=== PATIENT | male | born 1940 | race Caucasian/White ===

== ENCOUNTER 2018-02-14 20:42 | Inpatient (IN) | payer MEDICARE, OTHER ==
[2018-02-14 21:31] LABS: ADD MAN DIFF? NO
[2018-02-14 21:36] LABS: ABNORMAL IP MESSAGE 1; BASOPHIL # 0.1 10^3/ul (0.0-0.1); BASOPHILS % 0.3 % (0.0-2.0); EOSINOPHILS # 0.8 10^3/ul (0.0-0.5); EOSINOPHILS % 3.2 % (0.0-7.0); HEMATOCRIT 36.9 % (42.0-52.0); HEMOGLOBIN 12.1 g/dl (14.0-18.0); LYMPHOCYTES # 1.1 10^3/ul (0.8-2.9); LYMPHOCYTES % 4.5 % (15.0-51.0); MEAN CORPUSCULAR HEMOGLOBIN 29.9 pg (29.0-33.0); MEAN CORPUSCULAR HGB CONC 32.8 g/dl (32.0-37.0); MEAN CORPUSCULAR VOLUME 91.1 fl (82.0-101.0); MEAN PLATELET VOLUME 9.5 fl (7.4-10.4); MONOCYTE # 1.4 10^3/ul (0.3-0.9); MONOCYTES % 5.8 % (0.0-11.0); NEUTROPHIL # 20.8 10^3/ul (1.6-7.5); NEUTROPHILS % 85.1 % (39.0-77.0); PLATELET COUNT 483 10^3/UL (140-415); POSITIVE DIFF @See below; RED BLOOD COUNT 4.05 10^6/ul (4.70-6.10); RED CELL DISTRIBUTION WIDTH 15.5 % (11.5-14.5)
[2018-02-14 21:36] LABS: WHITE BLOOD COUNT 24.4 10^3/ul (4.8-10.8)
[2018-02-14] MEDS: SODIUM CHLORIDE 0.9% 1L BAG IV* (21:42)
[2018-02-14 22:05] LABS: ALANINE AMINOTRANSFERASE 134 IU/L (13-69); ALKALINE PHOSPHATASE 218 IU/L (42-121); ANION GAP 17 (8-16); ASPARTATE AMINO TRANSFERASE 86 IU/L (15-46); BILIRUBIN,INDIRECT 0.2 mg/dl (0-1.1); BILIRUBIN,TOTAL 0.2 mg/dl (0.2-1.3); BLOOD UREA NITROGEN 62 mg/dl (7-20); CALCIUM 10.3 mg/dl (8.4-10.2); CARBON DIOXIDE 25 mmol/L (21-31); CHLORIDE 111 mmol/L (97-110); CREATININE 1.79 mg/dl (0.61-1.24); GLUCOSE 99 mg/dl (70-220); LIPASE 83 U/L (23-300); SODIUM 148 mmol/L (135-144)
[2018-02-14 22:06] LABS: LACTIC ACID 1.9 mmol/L (0.5-2.0)
[2018-02-14 22:06] LABS: ALBUMIN 3.4 g/dl (3.3-4.9); ALBUMIN/GLOBULIN RATIO 0.85; TOTAL PROTEIN 7.4 g/dl (6.1-8.1)
[2018-02-14 22:17] LABS: TROPONIN-I 0.037 ng/ml (0.00-0.12)
[2018-02-14 22:21] LABS: INR 1.11; PROTIME 14.5 Sec (11.9-14.9); PT RATIO 1.1
[2018-02-14 22:22] LABS: PARTIAL THROMBOPLASTIN TIME 41.7 Sec (25.0-35.0)
[2018-02-14] MEDS: CEFEPIME 1GM/50 ML (PMX) 50 ML IVPB (23:41)
[2018-02-15] MEDS: VANCOMYCIN 1 GM (PMX) 250 ML IVPB (00:08)
[2018-02-15 00:10] LABS: LACTIC ACID 1.5 mmol/L (0.5-2.0)
[2018-02-15 03:15] LABS: LACTIC ACID 1.3 mmol/L (0.5-2.0)
[2018-02-15] MEDS ORDERED: VANCOMYCIN IV PER PHARMACY XX (11:30)
[2018-02-15] MEDS ORDERED: NACL 0.9% 3 ML SYG IV (12:00)
[2018-02-15] MEDS ORDERED: ONDANSETRON 4 MG INJ IV (12:00)
[2018-02-15] MEDS ORDERED: BISACODYL 10 MG SUPP PR (12:00)
[2018-02-15] MEDS ORDERED: hydrALAzine 20 MG INJ IV (13:00)
[2018-02-15] MEDS: DEXTROSE 5%-0.45% NACL 1,000 ML IV (13:33)
[2018-02-15] MEDS: PIPER-TAZO 2.25 GM (PMX) 50 ML IVPB ×2 (15:50→22:01)
[2018-02-15] MEDS: VANCOMYCIN 750 MG in DEXTROSE 5% 150 ML IVPB (17:56)
[2018-02-15] MEDS ORDERED: PIPER-TAZO 2.25 GM (PMX) 50 ML IVPB (19:00)
[2018-02-15] MEDS: HEPARIN 5,000 UNIT/0.5 ML VIAL SC (22:03)
[2018-02-15] MEDS: METOPROLOL 25 MG TAB PO (22:05)
[2018-02-15] MEDS: FAMOTIDINE 20 MG TAB PO (22:06)
[2018-02-15] MEDS: VALPROIC ACID 250 MG CAP PO (22:06)
[2018-02-15] MEDS: ATORVASTATIN 80 MG TAB PO (22:06)
[2018-02-16] MEDS: PIPER-TAZO 2.25 GM (PMX) 50 ML IVPB ×5 (02:27→23:07)
[2018-02-16] MEDS: HYDROCODONE/APAP (5/325) TAB PO ×2 (05:44→17:39)
[2018-02-16] MEDS: DEXTROSE 5%-0.45% NACL 1,000 ML IV ×2 (05:45→22:49)
[2018-02-16] MEDS: PANTOPRAZOLE (EC) 40 MG TAB PO (05:54)
[2018-02-16 06:33] LABS: ADD MAN DIFF? NO
[2018-02-16 06:41] LABS: WHITE BLOOD COUNT 14.9 10^3/ul (4.8-10.8)
[2018-02-16 06:41] LABS: BASOPHIL # 0.1 10^3/ul (0.0-0.1); BASOPHILS % 0.3 % (0.0-2.0); EOSINOPHILS # 0.5 10^3/ul (0.0-0.5); EOSINOPHILS % 3.4 % (0.0-7.0); HEMATOCRIT 34.6 % (42.0-52.0); HEMOGLOBIN 11.1 g/dl (14.0-18.0); LYMPHOCYTES # 1.1 10^3/ul (0.8-2.9); LYMPHOCYTES % 7.4 % (15.0-51.0); MEAN CORPUSCULAR HEMOGLOBIN 29.4 pg (29.0-33.0); MEAN CORPUSCULAR HGB CONC 32.1 g/dl (32.0-37.0); MEAN CORPUSCULAR VOLUME 91.8 fl (82.0-101.0); MEAN PLATELET VOLUME 9.1 fl (7.4-10.4); MONOCYTE # 0.8 10^3/ul (0.3-0.9); MONOCYTES % 5.1 % (0.0-11.0); NEUTROPHIL # 12.2 10^3/ul (1.6-7.5); NEUTROPHILS % 82.1 % (39.0-77.0); PLATELET COUNT 475 10^3/UL (140-415); RED BLOOD COUNT 3.77 10^6/ul (4.70-6.10); RED CELL DISTRIBUTION WIDTH 15.6 % (11.5-14.5)
[2018-02-16 06:58] LABS: CREATINE KINASE 29 IU/L (23-200)
[2018-02-16 06:58] LABS: URIC ACID 5.2 mg/dl (3.1-7.9)
[2018-02-16 07:03] LABS: ALANINE AMINOTRANSFERASE 89 IU/L (13-69); ALBUMIN 3.2 g/dl (3.3-4.9); ALBUMIN/GLOBULIN RATIO 0.94; ALKALINE PHOSPHATASE 167 IU/L (42-121); ANION GAP 14 (8-16); ASPARTATE AMINO TRANSFERASE 53 IU/L (15-46); BILIRUBIN,INDIRECT 0.4 mg/dl (0-1.1); BILIRUBIN,TOTAL 0.4 mg/dl (0.2-1.3); BLOOD UREA NITROGEN 38 mg/dl (7-20); CALCIUM 9.7 mg/dl (8.4-10.2); CARBON DIOXIDE 24 mmol/L (21-31); CHLORIDE 114 mmol/L (97-110); CREATININE 1.44 mg/dl (0.61-1.24); GLUCOSE 148 mg/dl (70-220); MAGNESIUM 1.8 mg/dl (1.7-2.5); POTASSIUM 4.2 mmol/L (3.5-5.1); SODIUM 148 mmol/L (135-144); TOTAL PROTEIN 6.6 g/dl (6.1-8.1)
[2018-02-16] MEDS ORDERED: INFLUENZA VIRUS VACCINE 0.5 ML (DISPENSING) IM* (09:00)
[2018-02-16] MEDS: CHOLECALCIFEROL 1,000 UNIT TAB PO (09:03)
[2018-02-16] MEDS: FERROUS SULFATE (EC) 325 MG TAB PO (09:03)
[2018-02-16] MEDS: AMLODIPINE 10 MG TAB PO (09:03)
[2018-02-16] MEDS: ASCORBIC ACID 500 MG TAB PO (09:03)
[2018-02-16] MEDS: METOPROLOL 25 MG TAB PO ×2 (09:03→22:45)
[2018-02-16] MEDS: MULTIVITAMINS THERAPEUTIC TAB PO (09:03)
[2018-02-16] MEDS: CLOPIDOGREL 75 MG TAB PO (09:04)
[2018-02-16] MEDS: COLCHICINE 0.6 MG TAB PO (09:04)
[2018-02-16] MEDS: HEPARIN 5,000 UNIT/0.5 ML VIAL SC ×2 (09:04→22:48)
[2018-02-16] MEDS: ACETAMINOPHEN 325 MG TAB PO (12:21)
[2018-02-16 15:29] LABS: ADD UMIC YES; UR ASCORBIC ACID NEGATIVE (NEGATIVE); UR BILIRUBIN (Dip) NEGATIVE (NEGATIVE); UR BLOOD (Dip) NEGATIVE (NEGATIVE); UR CLARITY SLIGHTLY CLOUDY (CLEAR); UR COLOR YELLOW (YELLOW); UR GLUCOSE (Dip) NEGATIVE (NEGATIVE); UR KETONES (Dip) NEGATIVE (NEGATIVE); UR LEUKOCYTE ESTERASE (Dip) TRACE Leu/ul (NEGATIVE); UR NITRITE (Dip) NEGATIVE (NEGATIVE); UR RBC 2 /HPF (0-5); UR TOTAL PROTEIN (Dip) NEGATIVE (NEGATIVE); UR UROBILINOGEN (Dip) NEGATIVE (NEGATIVE); UR WBC 3 /HPF (0-5)
[2018-02-16 15:33] LABS: SODIUM,URINE RANDOM 89 mmol/L (30-90)
[2018-02-16 15:35] LABS: CREATININE,URINE RANDOM 75.72 mg/dl (20-370); PROTEIN/CREAT RATIO 0.36 RATIO
[2018-02-16] MEDS: VANCOMYCIN 750 MG in DEXTROSE 5% 150 ML IVPB (16:28)
[2018-02-16] MEDS: VALPROIC ACID 250 MG CAP PO (22:44)
[2018-02-16] MEDS: FAMOTIDINE 20 MG TAB PO (22:45)
[2018-02-17 05:39] LABS: ADD MAN DIFF? NO
[2018-02-17 05:43] LABS: BASOPHILS % 0.2 % (0.0-2.0); EOSINOPHILS # 0.4 10^3/ul (0.0-0.5); EOSINOPHILS % 2.8 % (0.0-7.0); HEMATOCRIT 31.2 % (42.0-52.0); HEMOGLOBIN 10.2 g/dl (14.0-18.0); LYMPHOCYTES # 1.3 10^3/ul (0.8-2.9); LYMPHOCYTES % 8.7 % (15.0-51.0); MEAN CORPUSCULAR HEMOGLOBIN 29.9 pg (29.0-33.0); MEAN CORPUSCULAR HGB CONC 32.7 g/dl (32.0-37.0); MEAN CORPUSCULAR VOLUME 91.5 fl (82.0-101.0); MEAN PLATELET VOLUME 9.6 fl (7.4-10.4); MONOCYTE # 0.8 10^3/ul (0.3-0.9); MONOCYTES % 5.1 % (0.0-11.0); NEUTROPHIL # 12.1 10^3/ul (1.6-7.5); NEUTROPHILS % 81.1 % (39.0-77.0); PLATELET COUNT 461 10^3/UL (140-415); RED BLOOD COUNT 3.41 10^6/ul (4.70-6.10); RED CELL DISTRIBUTION WIDTH 15.8 % (11.5-14.5)
[2018-02-17 05:43] LABS: WHITE BLOOD COUNT 14.9 10^3/ul (4.8-10.8)
[2018-02-17 05:55] LABS: ANION GAP 15 (8-16); BLOOD UREA NITROGEN 34 mg/dl (7-20); CALCIUM 9.4 mg/dl (8.4-10.2); CARBON DIOXIDE 22 mmol/L (21-31); CHLORIDE 113 mmol/L (97-110); CREATININE 1.34 mg/dl (0.61-1.24); GLUCOSE 88 mg/dl (70-220); SODIUM 146 mmol/L (135-144)
[2018-02-17] MEDS: PIPER-TAZO 2.25 GM (PMX) 50 ML IVPB ×3 (05:55→18:44)
[2018-02-17] MEDS: PANTOPRAZOLE (EC) 40 MG TAB PO (05:55)
[2018-02-17] MEDS: AMLODIPINE 10 MG TAB PO (09:55)
[2018-02-17] MEDS: ASCORBIC ACID 500 MG TAB PO (09:55)
[2018-02-17] MEDS: FERROUS SULFATE (EC) 325 MG TAB PO (09:55)
[2018-02-17] MEDS: CLOPIDOGREL 75 MG TAB PO (09:55)
[2018-02-17] MEDS: MULTIVITAMINS THERAPEUTIC TAB PO (09:56)
[2018-02-17] MEDS: COLCHICINE 0.6 MG TAB PO (09:56)
[2018-02-17] MEDS: CHOLECALCIFEROL 1,000 UNIT TAB PO (09:57)
[2018-02-17] MEDS: METOPROLOL 25 MG TAB PO ×2 (09:57→21:53)
[2018-02-17] MEDS: HEPARIN 5,000 UNIT/0.5 ML VIAL SC ×2 (09:58→21:53)
[2018-02-17] MEDS: DEXTROSE 5%-0.45% NACL 1,000 ML IV (15:00)
[2018-02-17] MEDS: VANCOMYCIN 1 GM 250 ML IVPB (19:55)
[2018-02-17] MEDS: VALPROIC ACID 250 MG CAP PO (21:54)
[2018-02-17] MEDS: FAMOTIDINE 20 MG TAB PO (21:54)
[2018-02-18] MEDS: PIPER-TAZO 2.25 GM (PMX) 50 ML IVPB ×4 (00:22→18:09)
[2018-02-18] MEDS: DEXTROSE 5%-0.45% NACL 1,000 ML IV (03:30)
[2018-02-18 05:38] LABS: ADD MAN DIFF? NO
[2018-02-18 05:40] LABS: ABNORMAL IP MESSAGE 1; BASOPHIL # 0.1 10^3/ul (0.0-0.1); BASOPHILS % 0.4 % (0.0-2.0); EOSINOPHILS # 0.6 10^3/ul (0.0-0.5); EOSINOPHILS % 3.6 % (0.0-7.0); HEMATOCRIT 32.9 % (42.0-52.0); HEMOGLOBIN 10.8 g/dl (14.0-18.0); LYMPHOCYTES # 1.8 10^3/ul (0.8-2.9); LYMPHOCYTES % 10.9 % (15.0-51.0); MEAN CORPUSCULAR HEMOGLOBIN 30.4 pg (29.0-33.0); MEAN CORPUSCULAR HGB CONC 32.8 g/dl (32.0-37.0); MEAN CORPUSCULAR VOLUME 92.7 fl (82.0-101.0); MEAN PLATELET VOLUME 9.7 fl (7.4-10.4); MONOCYTE # 0.9 10^3/ul (0.3-0.9); MONOCYTES % 5.4 % (0.0-11.0); NEUTROPHIL # 12.1 10^3/ul (1.6-7.5); NEUTROPHILS % 74.6 % (39.0-77.0); PLATELET COUNT 424 10^3/UL (140-415); POSITIVE DIFF @See below; RED BLOOD COUNT 3.55 10^6/ul (4.70-6.10); RED CELL DISTRIBUTION WIDTH 15.5 % (11.5-14.5)
[2018-02-18 05:40] LABS: WHITE BLOOD COUNT 16.2 10^3/ul (4.8-10.8)
[2018-02-18 06:06] LABS: ANION GAP 17 (8-16); BLOOD UREA NITROGEN 27 mg/dl (7-20); CALCIUM 9.4 mg/dl (8.4-10.2); CARBON DIOXIDE 21 mmol/L (21-31); CHLORIDE 111 mmol/L (97-110); CREATININE 1.27 mg/dl (0.61-1.24); GLUCOSE 84 mg/dl (70-220); POTASSIUM 4.5 mmol/L (3.5-5.1); SODIUM 144 mmol/L (135-144)
[2018-02-18] MEDS: PANTOPRAZOLE (EC) 40 MG TAB PO (06:09)
[2018-02-18] MEDS: METOPROLOL 25 MG TAB PO ×2 (09:00→22:31)
[2018-02-18 09:34] LABS: EOSINOPHILS % (M) 5 % (0-7); GIANT THROMBO% (M) 2 % (0-0); LYMPHOCYTES #M 0.9 10^3/ul (0.8-2.9); LYMPHOCYTES % (M) 6 % (15-51); MONOCYTE #M 0.9 10^3/ul (0.3-0.9); MONOCYTES % (M) 6 % (0-11); PLATELET ESTIMATE NORMAL; POIKILOCYTOSIS 3+ (0-0); POLYCHROMASIA 1+ (0-0); REACTIVE LYMPHOCYTES #M 0.9 10^3/ul (0.0-0.0); REACTIVE LYMPHOCYTES% (M) 6 % (0-0); SEGMENTED NEUTROPHILS (M) % 77 % (39-77); SMUDGE%M 1 % (0-0)
[2018-02-18] MEDS: CHOLECALCIFEROL 1,000 UNIT TAB PO (10:04)
[2018-02-18] MEDS: COLCHICINE 0.6 MG TAB PO (10:05)
[2018-02-18] MEDS: CLOPIDOGREL 75 MG TAB PO (10:05)
[2018-02-18] MEDS: ASCORBIC ACID 500 MG TAB PO (10:06)
[2018-02-18] MEDS: FERROUS SULFATE (EC) 325 MG TAB PO (10:06)
[2018-02-18] MEDS: MULTIVITAMINS THERAPEUTIC TAB PO (10:46)
[2018-02-18] MEDS: AMLODIPINE 10 MG TAB PO (10:48)
[2018-02-18] MEDS: HEPARIN 5,000 UNIT/0.5 ML VIAL SC ×2 (10:51→22:32)
[2018-02-18] MEDS: HYDROCODONE/APAP (5/325) TAB PO (16:42)
[2018-02-18] MEDS: VANCOMYCIN 1 GM 250 ML IVPB (18:56)
[2018-02-18] MEDS: FLUOCINONIDE 0.05% 15 GM CR TOP (22:30)
[2018-02-18] MEDS: VALPROIC ACID LIQUID CUP 250 MG/5 ML CUP PO (22:31)
[2018-02-18] MEDS: FAMOTIDINE 20 MG TAB PO (22:31)
[2018-02-19] MEDS: DEXTROSE 5%-0.45% NACL 1,000 ML IV ×3 (00:48→21:29)
[2018-02-19] MEDS: PIPER-TAZO 2.25 GM (PMX) 50 ML IVPB ×4 (00:48→17:16)
[2018-02-19] MEDS: PANTOPRAZOLE (EC) 40 MG TAB PO (06:20)
[2018-02-19 06:21] LABS: ABNORMAL IP MESSAGE 1; HEMATOCRIT 33.2 % (42.0-52.0); HEMOGLOBIN 10.6 g/dl (14.0-18.0); MEAN CORPUSCULAR HEMOGLOBIN 29.7 pg (29.0-33.0); MEAN CORPUSCULAR HGB CONC 31.9 g/dl (32.0-37.0); MEAN PLATELET VOLUME 9.6 fl (7.4-10.4); PLATELET COUNT 513 10^3/UL (140-415); POSITIVE DIFF @See below; RED BLOOD COUNT 3.57 10^6/ul (4.70-6.10); RED CELL DISTRIBUTION WIDTH 15.6 % (11.5-14.5)
[2018-02-19 06:21] LABS: WHITE BLOOD COUNT 15.6 10^3/ul (4.8-10.8)
[2018-02-19 06:48] LABS: ADD MAN DIFF? YES
[2018-02-19 06:54] LABS: ANION GAP 16 (8-16); BLOOD UREA NITROGEN 22 mg/dl (7-20); CALCIUM 9.5 mg/dl (8.4-10.2); CARBON DIOXIDE 25 mmol/L (21-31); CHLORIDE 110 mmol/L (97-110); CREATININE 1.51 mg/dl (0.61-1.24); GLUCOSE 75 mg/dl (70-220); POTASSIUM 4.4 mmol/L (3.5-5.1); SODIUM 147 mmol/L (135-144)
[2018-02-19] MEDS: FERROUS SULFATE (EC) 325 MG TAB PO (09:13)
[2018-02-19] MEDS: AMLODIPINE 10 MG TAB PO (09:13)
[2018-02-19] MEDS: CLOPIDOGREL 75 MG TAB PO (09:13)
[2018-02-19] MEDS: ASCORBIC ACID 500 MG TAB PO (09:13)
[2018-02-19] MEDS: MULTIVITAMINS THERAPEUTIC TAB PO (09:13)
[2018-02-19] MEDS: CHOLECALCIFEROL 1,000 UNIT TAB PO (09:14)
[2018-02-19] MEDS: METOPROLOL 25 MG TAB PO ×2 (09:14→21:30)
[2018-02-19] MEDS: COLCHICINE 0.6 MG TAB PO (09:14)
[2018-02-19] MEDS: HEPARIN 5,000 UNIT/0.5 ML VIAL SC ×2 (09:15→21:30)
[2018-02-19 09:18] LABS: BAND NEUTROPHILS #M 0.1 10^3/ul (0.0-0.6); BAND NEUTROPHILS % (M) 1 % (0-4); EOSINOPHILS % (M) 5 % (0-7); LYMPHOCYTES #M 1.4 10^3/ul (0.8-2.9); LYMPHOCYTES % (M) 9 % (15-51); METAMYELOCYTES #M 0.1 10^3/ul (0.0-0.0); METAMYELOCYTES %M 1 % (0-0); MONOCYTE #M 1.7 10^3/ul (0.3-0.9); MONOCYTES % (M) 11 % (0-11); MYELOCYTES #M 0.1 10^3/ul (0.0-0.0); MYELOCYTES % (M) 1 % (0-0); PLATELET ESTIMATE NORMAL; POIKILOCYTOSIS 2+ (0-0); POLYCHROMASIA 1+ (0-0); PROMYELOCYTES #M 0.1 10^3/ul (0-0); PROMYELOCYTES % (M) 1 % (0-0); REACTIVE LYMPHOCYTES #M 0.1 10^3/ul (0.0-0.0); REACTIVE LYMPHOCYTES% (M) 1 % (0-0); SEG NEUT #M 10.9 10^3/ul (1.6-7.5); SEGMENTED NEUTROPHILS (M) % 70 % (39-77); SMUDGE%M 1 % (0-0)
[2018-02-19] MEDS: FLUOCINONIDE 0.05% 15 GM CR TOP ×2 (09:18→21:29)
[2018-02-19] MEDS: VANCOMYCIN 1 GM 250 ML IVPB (18:14)
[2018-02-19] MEDS: FAMOTIDINE 20 MG TAB PO (21:29)
[2018-02-19] MEDS: VALPROIC ACID LIQUID CUP 250 MG/5 ML CUP PO (21:29)
[2018-02-19] MEDS: HYDROCODONE/APAP (5/325) TAB PO (23:14)
[2018-02-20] MEDS: PIPER-TAZO 2.25 GM (PMX) 50 ML IVPB ×4 (00:34→17:06)
[2018-02-20 04:52] LABS: ADD MAN DIFF? NO
[2018-02-20 05:04] LABS: ABNORMAL IP MESSAGE 1; BASOPHIL # 0.1 10^3/ul (0.0-0.1); BASOPHILS % 0.4 % (0.0-2.0); EOSINOPHILS # 0.6 10^3/ul (0.0-0.5); EOSINOPHILS % 3.5 % (0.0-7.0); HEMATOCRIT 33.3 % (42.0-52.0); HEMOGLOBIN 10.8 g/dl (14.0-18.0); LYMPHOCYTES # 2.1 10^3/ul (0.8-2.9); LYMPHOCYTES % 13.4 % (15.0-51.0); MEAN CORPUSCULAR HEMOGLOBIN 30.1 pg (29.0-33.0); MEAN CORPUSCULAR HGB CONC 32.4 g/dl (32.0-37.0); MEAN CORPUSCULAR VOLUME 92.8 fl (82.0-101.0); MEAN PLATELET VOLUME 10.1 fl (7.4-10.4); MONOCYTE # 0.8 10^3/ul (0.3-0.9); MONOCYTES % 4.8 % (0.0-11.0); NEUTROPHIL # 11.3 10^3/ul (1.6-7.5); NEUTROPHILS % 71.8 % (39.0-77.0); PLATELET COUNT 450 10^3/UL (140-415); POSITIVE DIFF @See below; RED BLOOD COUNT 3.59 10^6/ul (4.70-6.10); RED CELL DISTRIBUTION WIDTH 15.4 % (11.5-14.5)
[2018-02-20 05:04] LABS: WHITE BLOOD COUNT 15.8 10^3/ul (4.8-10.8)
[2018-02-20 05:14] LABS: ANION GAP 14 (8-16); BLOOD UREA NITROGEN 20 mg/dl (7-20); CALCIUM 9.3 mg/dl (8.4-10.2); CARBON DIOXIDE 26 mmol/L (21-31); CHLORIDE 110 mmol/L (97-110); CREATININE 1.15 mg/dl (0.61-1.24); GLUCOSE 89 mg/dl (70-220); POTASSIUM 4.3 mmol/L (3.5-5.1); SODIUM 146 mmol/L (135-144)
[2018-02-20] MEDS: PANTOPRAZOLE (EC) 40 MG TAB PO (06:09)
[2018-02-20] MEDS: CLOPIDOGREL 75 MG TAB PO (09:17)
[2018-02-20] MEDS: AMLODIPINE 10 MG TAB PO (09:17)
[2018-02-20] MEDS: MULTIVITAMINS THERAPEUTIC TAB PO (09:17)
[2018-02-20] MEDS: FERROUS SULFATE (EC) 325 MG TAB PO (09:17)
[2018-02-20] MEDS: METOPROLOL 25 MG TAB PO ×2 (09:17→21:17)
[2018-02-20] MEDS: COLCHICINE 0.6 MG TAB PO (09:17)
[2018-02-20] MEDS: ASCORBIC ACID 500 MG TAB PO (09:18)
[2018-02-20] MEDS: FLUOCINONIDE 0.05% 15 GM CR TOP ×2 (09:18→21:12)
[2018-02-20] MEDS: CHOLECALCIFEROL 1,000 UNIT TAB PO (09:18)
[2018-02-20] MEDS: HEPARIN 5,000 UNIT/0.5 ML VIAL SC ×2 (09:19→21:11)
[2018-02-20] MEDS: HYDROCODONE/APAP (5/325) TAB PO (13:50)
[2018-02-20] MEDS: DEXTROSE 5%-0.45% NACL 1,000 ML IV (15:11)
[2018-02-20 17:50] LABS: VANCOMYCIN,TROUGH 13.3 ug/ml (10.0-20.0)
[2018-02-20] MEDS: VANCOMYCIN 1 GM 250 ML IVPB (18:01)
[2018-02-20] MEDS: VALPROIC ACID LIQUID CUP 250 MG/5 ML CUP PO (21:10)
[2018-02-20] MEDS: FAMOTIDINE 20 MG TAB PO (21:11)
[2018-02-20] MEDS: LEVOFLOXACIN 250 MG TAB PO (21:13)
[2018-02-20] MEDS: DOXYCYCLINE 100 MG in SOD CHLORIDE 0.9% 250 ML IVPB (21:14)
[2018-02-21 05:06] LABS: ADD MAN DIFF? NO
[2018-02-21 05:10] LABS: WHITE BLOOD COUNT 12.9 10^3/ul (4.8-10.8)
[2018-02-21 05:10] LABS: ABNORMAL IP MESSAGE 1; BASOPHIL # 0.1 10^3/ul (0.0-0.1); BASOPHILS % 0.5 % (0.0-2.0); EOSINOPHILS # 0.6 10^3/ul (0.0-0.5); EOSINOPHILS % 4.4 % (0.0-7.0); HEMATOCRIT 30.9 % (42.0-52.0); HEMOGLOBIN 10.1 g/dl (14.0-18.0); LYMPHOCYTES # 2.1 10^3/ul (0.8-2.9); LYMPHOCYTES % 16.2 % (15.0-51.0); MEAN CORPUSCULAR HEMOGLOBIN 30.1 pg (29.0-33.0); MEAN CORPUSCULAR HGB CONC 32.7 g/dl (32.0-37.0); MEAN PLATELET VOLUME 9.3 fl (7.4-10.4); MONOCYTE # 0.7 10^3/ul (0.3-0.9); MONOCYTES % 5.3 % (0.0-11.0); NEUTROPHIL # 8.7 10^3/ul (1.6-7.5); NEUTROPHILS % 66.9 % (39.0-77.0); PLATELET COUNT 513 10^3/UL (140-415); POSITIVE DIFF @See below; RED BLOOD COUNT 3.36 10^6/ul (4.70-6.10); RED CELL DISTRIBUTION WIDTH 15.5 % (11.5-14.5)
[2018-02-21 05:34] LABS: ANION GAP 15 (8-16); BLOOD UREA NITROGEN 16 mg/dl (7-20); CALCIUM 9.3 mg/dl (8.4-10.2); CARBON DIOXIDE 22 mmol/L (21-31); CHLORIDE 113 mmol/L (97-110); CREATININE 1.12 mg/dl (0.61-1.24); GLUCOSE 91 mg/dl (70-220); POTASSIUM 3.8 mmol/L (3.5-5.1); SODIUM 146 mmol/L (135-144)
[2018-02-21] MEDS: LEVOFLOXACIN 250 MG TAB PO (06:29)
[2018-02-21] MEDS: LANSOPRAZOLE 30 MG CAP PO (06:29)
[2018-02-21] MEDS: HEPARIN 5,000 UNIT/0.5 ML VIAL SC ×2 (09:28→21:05)
[2018-02-21] MEDS: DOXYCYCLINE 100 MG in SOD CHLORIDE 0.9% 250 ML IVPB ×2 (09:32→21:04)
[2018-02-21] MEDS: COLCHICINE 0.6 MG TAB PO (09:32)
[2018-02-21] MEDS: ASCORBIC ACID 500 MG TAB PO (09:33)
[2018-02-21] MEDS: FLUOCINONIDE 0.05% 15 GM CR TOP ×2 (09:33→21:05)
[2018-02-21] MEDS: CHOLECALCIFEROL 1,000 UNIT TAB PO (09:33)
[2018-02-21] MEDS: MULTIVITAMINS THERAPEUTIC TAB PO (09:33)
[2018-02-21] MEDS: FERROUS SULFATE (EC) 325 MG TAB PO (09:33)
[2018-02-21] MEDS: CLOPIDOGREL 75 MG TAB PO (09:33)
[2018-02-21] MEDS: METOPROLOL 25 MG TAB PO ×2 (09:34→21:06)
[2018-02-21] MEDS: AMLODIPINE 10 MG TAB PO (09:34)
[2018-02-21] MEDS: DEXTROSE 5%-0.45% NACL 1,000 ML IV (18:09)
[2018-02-21] MEDS: FAMOTIDINE 20 MG TAB PO (21:06)
[2018-02-21] MEDS: VALPROIC ACID LIQUID CUP 250 MG/5 ML CUP PO (21:06)
[2018-02-22 05:50] LABS: ADD MAN DIFF? NO
[2018-02-22 05:59] LABS: WHITE BLOOD COUNT 11.9 10^3/ul (4.8-10.8)
[2018-02-22 05:59] LABS: BASOPHIL # 0.1 10^3/ul (0.0-0.1); BASOPHILS % 0.9 % (0.0-2.0); EOSINOPHILS # 0.4 10^3/ul (0.0-0.5); EOSINOPHILS % 3.6 % (0.0-7.0); HEMATOCRIT 37.1 % (42.0-52.0); HEMOGLOBIN 11.9 g/dl (14.0-18.0); LYMPHOCYTES # 2.5 10^3/ul (0.8-2.9); LYMPHOCYTES % 20.6 % (15.0-51.0); MEAN CORPUSCULAR HEMOGLOBIN 29.6 pg (29.0-33.0); MEAN CORPUSCULAR HGB CONC 32.1 g/dl (32.0-37.0); MEAN CORPUSCULAR VOLUME 92.3 fl (82.0-101.0); MEAN PLATELET VOLUME 9.3 fl (7.4-10.4); MONOCYTE # 0.7 10^3/ul (0.3-0.9); MONOCYTES % 5.5 % (0.0-11.0); NEUTROPHIL # 7.7 10^3/ul (1.6-7.5); NEUTROPHILS % 64.5 % (39.0-77.0); PLATELET COUNT 583 10^3/UL (140-415); POSITIVE DIFF @See below; RED BLOOD COUNT 4.02 10^6/ul (4.70-6.10); RED CELL DISTRIBUTION WIDTH 15.1 % (11.5-14.5)
[2018-02-22] MEDS: LEVOFLOXACIN 250 MG TAB PO (06:13)
[2018-02-22] MEDS: LANSOPRAZOLE 30 MG CAP PO (06:13)
[2018-02-22 07:00] LABS: BLOOD UREA NITROGEN 13 mg/dl (7-20); CALCIUM 9.9 mg/dl (8.4-10.2); CARBON DIOXIDE 24 mmol/L (21-31); CREATININE 1.04 mg/dl (0.61-1.24); GLUCOSE 92 mg/dl (70-220); POTASSIUM 3.8 mmol/L (3.5-5.1); SODIUM 146 mmol/L (135-144)
[2018-02-22 07:05] LABS: ANION GAP 15 (8-16); CHLORIDE 111 mmol/L (97-110)
[2018-02-22] MEDS: CHOLECALCIFEROL 1,000 UNIT TAB PO (09:04)
[2018-02-22] MEDS: MULTIVITAMINS THERAPEUTIC TAB PO (09:04)
[2018-02-22] MEDS: FERROUS SULFATE (EC) 325 MG TAB PO (09:04)
[2018-02-22] MEDS: CLOPIDOGREL 75 MG TAB PO (09:04)
[2018-02-22] MEDS: ASCORBIC ACID 500 MG TAB PO (09:04)
[2018-02-22] MEDS: AMLODIPINE 10 MG TAB PO (09:04)
[2018-02-22] MEDS: COLCHICINE 0.6 MG TAB PO (09:04)
[2018-02-22] MEDS: METOPROLOL 25 MG TAB PO (09:05)
[2018-02-22] MEDS: HEPARIN 5,000 UNIT/0.5 ML VIAL SC (09:06)
[2018-02-22] MEDS: FLUOCINONIDE 0.05% 15 GM CR TOP (09:06)
[2018-02-22] MEDS: DOXYCYCLINE 100 MG in SOD CHLORIDE 0.9% 250 ML IVPB (10:05)
[2018-02-22] MEDS: DEXTROSE 5%-0.45% NACL 1,000 ML IV (11:40)
== END 2018-02-22 17:54 | DRG 871 ==
LOC: PP2 23:31 → E/R 20:42
DX: A41.9 Sepsis, unspecified organism (principal); J69.0 Pneumonitis due to inhalation of food and vomit; N17.0 Acute kidney failure with tubular necrosis; G93.40 Encephalopathy, unspecified; E43 Unspecified severe protein-calorie malnutrition; E87.0 Hyperosmolality and hypernatremia; N39.0 Urinary tract infection, site not specified; Z68.1 Body mass index [BMI] 19.9 or less, adult; J44.9 Chronic obstructive pulmonary disease, unspecified; I12.9 Hypertensive chronic kidney disease with stage 1 through stage 4 chronic kidney disease, or unspecified chronic kidney disease; F01.50 Vascular dementia, unspecified severity, without behavioral disturbance, psychotic disturbance, mood disturbance, and anxiety; M10.9 Gout, unspecified; I69.920 Aphasia following unspecified cerebrovascular disease; G47.33 Obstructive sleep apnea (adult) (pediatric); N18.3 Chronic kidney disease, stage 3 (moderate); E78.5 Hyperlipidemia, unspecified; E86.0 Dehydration; R65.20 Severe sepsis without septic shock; Z79.02 Long term (current) use of antithrombotics/antiplatelets; Z87.891 Personal history of nicotine dependence; I69.991 Dysphagia following unspecified cerebrovascular disease; G40.909 Epilepsy, unspecified, not intractable, without status epilepticus
CPT/HCPCS: 36415; 70360; 71045; 76775; 80048; 80053; 80202; 81001; 81003; 82550; 82570; 83605; 83690; 83735; 84300; 84484; 84560; 85025; 85610; 85730; 87040; 87081; 87086; 89190; 92526; 92610; 93005; 94660; 96374; 96375; 99285-25

== ENCOUNTER 2018-08-24 15:44 | Inpatient (IN) | payer MEDICARE, OTHER ==
[2018-08-24 16:17] LABS: ADD MAN DIFF? NO
[2018-08-24 16:31] LABS: BASOPHILS % 0.3 % (0.0-2.0); EOSINOPHILS % 0.1 % (0.0-7.0); HEMATOCRIT 43.7 % (42.0-52.0); HEMOGLOBIN 13.8 g/dl (14.0-18.0); LYMPHOCYTES # 1.1 10^3/ul (0.8-2.9); MEAN CORPUSCULAR HEMOGLOBIN 29.9 pg (29.0-33.0); MEAN CORPUSCULAR HGB CONC 31.6 g/dl (32.0-37.0); MEAN CORPUSCULAR VOLUME 94.6 fl (82.0-101.0); MEAN PLATELET VOLUME 9.6 fl (7.4-10.4); MONOCYTE # 0.4 10^3/ul (0.3-0.9); MONOCYTES % 2.6 % (0.0-11.0); NEUTROPHIL # 11.8 10^3/ul (1.6-7.5); PLATELET COUNT 360 10^3/UL (140-415); RED BLOOD COUNT 4.62 10^6/ul (4.70-6.10); RED CELL DISTRIBUTION WIDTH 14.2 % (11.5-14.5)
[2018-08-24 16:31] LABS: WHITE BLOOD COUNT 13.6 10^3/ul (4.8-10.8)
[2018-08-24 16:45] LABS: INR 0.95; PROTIME 12.8 Sec (11.9-14.9)
[2018-08-24 16:46] LABS: PARTIAL THROMBOPLASTIN TIME 29.8 Sec (23.0-35.0)
[2018-08-24 16:50] LABS: BLOOD UREA NITROGEN 43 mg/dl (7-20); CALCIUM 10.4 mg/dl (8.4-10.2); CARBON DIOXIDE 33 mmol/L (21-31); CHLORIDE 104 mmol/L (97-110); CREATININE 1.46 mg/dl (0.61-1.24); GLUCOSE 120 mg/dl (70-220); SODIUM 141 mmol/L (135-144)
[2018-08-24 16:54] LABS: ADD UMIC NO; UR ASCORBIC ACID NEGATIVE (NEGATIVE); UR BILIRUBIN (Dip) NEGATIVE (NEGATIVE); UR BLOOD (Dip) NEGATIVE (NEGATIVE); UR CLARITY CLEAR (CLEAR); UR COLOR YELLOW (YELLOW); UR GLUCOSE (Dip) NEGATIVE (NEGATIVE); UR KETONES (Dip) NEGATIVE (NEGATIVE); UR LEUKOCYTE ESTERASE (Dip) NEGATIVE Leu/ul (NEGATIVE); UR NITRITE (Dip) NEGATIVE (NEGATIVE); UR SPECIFIC GRAVITY (Dip) 1.016 (1.003-1.030); UR TOTAL PROTEIN (Dip) NEGATIVE (NEGATIVE); UR UROBILINOGEN (Dip) NEGATIVE (NEGATIVE)
[2018-08-24 17:02] LABS: TROPONIN-I < 0.012 ng/ml (0.000-0.120)
[2018-08-24] MEDS: PIPER-TAZO 3.375 GM IV (PMX) 100 ML IVPB (18:05)
[2018-08-24] MEDS: VANCOMYCIN 1 GM (PMX) 250 ML IVPB (19:06)
[2018-08-24 19:29] LABS: POTASSIUM 6.2 mmol/L (3.5-5.1)
[2018-08-24] MEDS ORDERED: ACETAMINOPHEN 650 MG PO (20:30)
[2018-08-24] MEDS ORDERED: MINERAL OIL 133 ML ENEMA PR (20:30)
[2018-08-24] MEDS ORDERED: BISACODYL 10 MG SUPP PR (20:30)
[2018-08-24] MEDS ORDERED: MAGNESIUM HYDROXIDE 30ML CUP PO (20:30)
[2018-08-24] MEDS: METOPROLOL 50 MG TAB PO (21:00)
[2018-08-24] MEDS ORDERED: METOPROLOL 25 MG TAB PO (21:00)
[2018-08-24] MEDS ORDERED: ACETAMINOPHEN 325 MG TAB PO (21:00)
[2018-08-24] MEDS: NA POLYST SULFON 15 GM/60 ML BTL PO (21:25)
[2018-08-24] MEDS: ATORVASTATIN 80 MG TAB PO (21:57)
[2018-08-24] MEDS: LEVOFLOXACIN 500MG/D5W (PMX) 100 ML IVPB (21:57)
[2018-08-24] MEDS: QUETIAPINE 25 MG TAB PO (21:57)
[2018-08-24] MEDS: FAMOTIDINE 20 MG TAB PO (21:57)
[2018-08-24] MEDS: INSULIN REGULAR, HUMAN 100 UNIT/1 ML 3ML VIAL IVP (22:15)
[2018-08-24] MEDS: VALPROIC ACID 250 MG CAP PO (22:16)
[2018-08-24] MEDS: AMLODIPINE 10 MG TAB PO (22:16)
[2018-08-24] MEDS: DEXTROSE 50% 50 ML SYRINGE IV (22:16)
[2018-08-24] MEDS: LEVALBUTEROL (NEB) 0.63 MG/3 ML AMP HHN (23:12)
[2018-08-24 23:18] LABS: LACTIC ACID 2.4 mmol/L (0.5-2.0)
[2018-08-25] MEDS: SOD CHLORIDE 0.45% 1,000 ML IV ×2 (00:42→20:02)
[2018-08-25 06:20] LABS: ADD MAN DIFF? NO
[2018-08-25 06:21] LABS: BASOPHIL # 0.1 10^3/ul (0.0-0.1); BASOPHILS % 0.6 % (0.0-2.0); EOSINOPHILS # 0.1 10^3/ul (0.0-0.5); EOSINOPHILS % 1.2 % (0.0-7.0); HEMATOCRIT 38.2 % (42.0-52.0); HEMOGLOBIN 12.3 g/dl (14.0-18.0); LYMPHOCYTES # 1.1 10^3/ul (0.8-2.9); LYMPHOCYTES % 9.7 % (15.0-51.0); MEAN CORPUSCULAR HEMOGLOBIN 30.1 pg (29.0-33.0); MEAN CORPUSCULAR HGB CONC 32.2 g/dl (32.0-37.0); MEAN CORPUSCULAR VOLUME 93.6 fl (82.0-101.0); MONOCYTE # 0.8 10^3/ul (0.3-0.9); MONOCYTES % 7.3 % (0.0-11.0); NEUTROPHILS % 79.3 % (39.0-77.0); PLATELET COUNT 335 10^3/UL (140-415); RED BLOOD COUNT 4.08 10^6/ul (4.70-6.10)
[2018-08-25 06:21] LABS: WHITE BLOOD COUNT 11.4 10^3/ul (4.8-10.8)
[2018-08-25 06:55] LABS: BLOOD UREA NITROGEN 38 mg/dl (7-20); CALCIUM 9.6 mg/dl (8.4-10.2); CARBON DIOXIDE 29 mmol/L (21-31); CHLORIDE 107 mmol/L (97-110); CREATININE 1.44 mg/dl (0.61-1.24); GLUCOSE 85 mg/dl (70-220); SODIUM 145 mmol/L (135-144)
[2018-08-25] MEDS: LEVALBUTEROL (NEB) 0.63 MG/3 ML AMP HHN ×3 (08:01→23:21)
[2018-08-25] MEDS ORDERED: NON-FORMULARY/PATIENT OWN MED (Cran/Vitc/Mannose/Inulin/Brom (Uti-Stat Liquid) 3,875 MG) PO (09:00)
[2018-08-25] MEDS: FERROUS SULFATE (EC) 325 MG TAB PO (09:06)
[2018-08-25] MEDS: FAMOTIDINE 20 MG TAB PO ×2 (09:06→20:27)
[2018-08-25] MEDS: CLOPIDOGREL 75 MG TAB PO (09:06)
[2018-08-25] MEDS: predniSONE 20 MG TAB PO (09:06)
[2018-08-25] MEDS: AMLODIPINE 10 MG TAB PO (09:06)
[2018-08-25] MEDS: MULTIVITAMINS THERAPEUTIC TAB PO (09:06)
[2018-08-25] MEDS: CHOLECALCIFEROL 1,000 UNIT TAB PO (09:07)
[2018-08-25] MEDS: METOPROLOL 50 MG TAB PO ×2 (09:07→20:28)
[2018-08-25] MEDS: ENOXAPARIN 30 MG/0.3 ML SYG SC (09:09)
[2018-08-25] MEDS: COLCHICINE 0.6 MG TAB PO (09:16)
[2018-08-25 09:33] LABS: ANION GAP 9 (5-13)
[2018-08-25 10:06] LABS: ANION GAP 4 (5-13)
[2018-08-25] MEDS: LEVOFLOXACIN 500MG/D5W (PMX) 100 ML IVPB (20:02)
[2018-08-25] MEDS: L ACIDOPHIL/B LACTIS/B LONGUM CAPSULE PO (20:27)
[2018-08-25] MEDS: ATORVASTATIN 80 MG TAB PO (20:27)
[2018-08-25] MEDS: QUETIAPINE 25 MG TAB PO (20:27)
[2018-08-25] MEDS: VALPROIC ACID 250 MG CAP PO (20:27)
[2018-08-25] MEDS: CEFTRIAXONE 1 GM/50 ML (PMX) 50 ML IVPB (23:53)
[2018-08-26] MEDS: LEVALBUTEROL (NEB) 0.63 MG/3 ML AMP HHN ×2 (08:46→15:57)
[2018-08-26] MEDS: METOPROLOL 50 MG TAB PO (09:00)
[2018-08-26] MEDS: CLOPIDOGREL 75 MG TAB PO (09:12)
[2018-08-26] MEDS: CHOLECALCIFEROL 1,000 UNIT TAB PO (09:12)
[2018-08-26] MEDS: L ACIDOPHIL/B LACTIS/B LONGUM CAPSULE PO ×2 (09:12→20:43)
[2018-08-26] MEDS: FAMOTIDINE 20 MG TAB PO ×2 (09:13→20:43)
[2018-08-26] MEDS: AMLODIPINE 10 MG TAB PO (09:13)
[2018-08-26] MEDS: COLCHICINE 0.6 MG TAB PO (09:14)
[2018-08-26] MEDS: MULTIVITAMINS THERAPEUTIC TAB PO (09:15)
[2018-08-26] MEDS: predniSONE 20 MG TAB PO (09:15)
[2018-08-26] MEDS: FERROUS SULFATE (EC) 325 MG TAB PO (09:15)
[2018-08-26] MEDS: ENOXAPARIN 30 MG/0.3 ML SYG SC (09:31)
[2018-08-26 10:16] LABS: ADD MAN DIFF? NO
[2018-08-26 10:25] LABS: BASOPHIL # 0.1 10^3/ul (0.0-0.1); BASOPHILS % 0.6 % (0.0-2.0); EOSINOPHILS # 0.2 10^3/ul (0.0-0.5); EOSINOPHILS % 1.4 % (0.0-7.0); HEMATOCRIT 39.2 % (42.0-52.0); HEMOGLOBIN 12.2 g/dl (14.0-18.0); LYMPHOCYTES # 2.1 10^3/ul (0.8-2.9); LYMPHOCYTES % 16.9 % (15.0-51.0); MEAN CORPUSCULAR HEMOGLOBIN 29.8 pg (29.0-33.0); MEAN CORPUSCULAR HGB CONC 31.1 g/dl (32.0-37.0); MEAN CORPUSCULAR VOLUME 95.8 fl (82.0-101.0); MEAN PLATELET VOLUME 10.2 fl (7.4-10.4); MONOCYTE # 0.8 10^3/ul (0.3-0.9); MONOCYTES % 6.3 % (0.0-11.0); NEUTROPHILS % 73.1 % (39.0-77.0); PLATELET COUNT 267 10^3/UL (140-415); RED BLOOD COUNT 4.09 10^6/ul (4.70-6.10)
[2018-08-26 10:25] LABS: WHITE BLOOD COUNT 12.3 10^3/ul (4.8-10.8)
[2018-08-26 10:40] LABS: ALANINE AMINOTRANSFERASE 37 IU/L (13-69); ALBUMIN 3.1 g/dl (3.3-4.9); ALBUMIN/GLOBULIN RATIO 0.96; ALKALINE PHOSPHATASE 75 IU/L (42-121); ANION GAP 9 (5-13); ASPARTATE AMINO TRANSFERASE 23 IU/L (15-46); BILIRUBIN,INDIRECT 0.5 mg/dl (0-1.1); BILIRUBIN,TOTAL 0.5 mg/dl (0.2-1.3); BLOOD UREA NITROGEN 39 mg/dl (7-20); CALCIUM 9.5 mg/dl (8.4-10.2); CARBON DIOXIDE 25 mmol/L (21-31); CHLORIDE 108 mmol/L (97-110); CREATININE 1.46 mg/dl (0.61-1.24); GLUCOSE 124 mg/dl (70-220); POTASSIUM 4.4 mmol/L (3.5-5.1); SODIUM 142 mmol/L (135-144); TOTAL PROTEIN 6.3 g/dl (6.1-8.1)
[2018-08-26] MEDS: DOXYCYCLINE 100 MG in SOD CHLORIDE 0.9% 250 ML IVPB ×2 (16:00→20:42)
[2018-08-26] MEDS: SOD CHLORIDE 0.45% 1,000 ML IV (16:00)
[2018-08-26] MEDS: ATORVASTATIN 80 MG TAB PO (20:43)
[2018-08-26] MEDS: QUETIAPINE 25 MG TAB PO (20:43)
[2018-08-26] MEDS: BALSAM PERU/CASTOR OIL 60 GM TUBE TOP (20:43)
[2018-08-26] MEDS: MUPIROCIN 2% 22 GM OINT TOP (20:43)
[2018-08-26] MEDS: VALPROIC ACID 250 MG CAP PO (20:50)
[2018-08-26] MEDS ORDERED: METOPROLOL 25 MG TAB PO (21:00)
[2018-08-27] MEDS: CEFTRIAXONE 1 GM/50 ML (PMX) 50 ML IVPB (00:57)
[2018-08-27] MEDS: LEVALBUTEROL (NEB) 0.63 MG/3 ML AMP HHN ×4 (01:03→23:34)
[2018-08-27] MEDS: SOD CHLORIDE 0.45% 1,000 ML IV ×2 (05:19→12:00)
[2018-08-27 06:11] LABS: ADD MAN DIFF? NO
[2018-08-27 06:17] LABS: WHITE BLOOD COUNT 11.8 10^3/ul (4.8-10.8)
[2018-08-27 06:17] LABS: BASOPHIL # 0.1 10^3/ul (0.0-0.1); BASOPHILS % 0.4 % (0.0-2.0); EOSINOPHILS # 0.1 10^3/ul (0.0-0.5); EOSINOPHILS % 1.2 % (0.0-7.0); HEMATOCRIT 36.8 % (42.0-52.0); HEMOGLOBIN 11.8 g/dl (14.0-18.0); LYMPHOCYTES # 1.7 10^3/ul (0.8-2.9); LYMPHOCYTES % 14.7 % (15.0-51.0); MEAN CORPUSCULAR HEMOGLOBIN 30.3 pg (29.0-33.0); MEAN CORPUSCULAR HGB CONC 32.1 g/dl (32.0-37.0); MEAN CORPUSCULAR VOLUME 94.4 fl (82.0-101.0); MEAN PLATELET VOLUME 11.4 fl (7.4-10.4); MONOCYTE # 0.7 10^3/ul (0.3-0.9); NEUTROPHILS % 76.3 % (39.0-77.0); PLATELET COUNT 239 10^3/UL (140-415); POSITIVE DIFF @See below; RED CELL DISTRIBUTION WIDTH 13.7 % (11.5-14.5)
[2018-08-27 06:48] LABS: ANION GAP 8 (5-13); BLOOD UREA NITROGEN 34 mg/dl (7-20); CALCIUM 9.1 mg/dl (8.4-10.2); CARBON DIOXIDE 26 mmol/L (21-31); CHLORIDE 108 mmol/L (97-110); GLUCOSE 71 mg/dl (70-220); POTASSIUM 4.2 mmol/L (3.5-5.1); SODIUM 142 mmol/L (135-144)
[2018-08-27 07:22] LABS: MAGNESIUM 1.8 mg/dl (1.7-2.5)
[2018-08-27] MEDS: COLCHICINE 0.6 MG TAB PO (09:23)
[2018-08-27] MEDS: DOXYCYCLINE 100 MG in SOD CHLORIDE 0.9% 250 ML IVPB ×2 (09:23→20:18)
[2018-08-27] MEDS: CLOPIDOGREL 75 MG TAB PO (09:23)
[2018-08-27] MEDS: FAMOTIDINE 20 MG TAB PO ×2 (09:24→20:16)
[2018-08-27] MEDS: MULTIVITAMINS THERAPEUTIC TAB PO (09:24)
[2018-08-27] MEDS: predniSONE 20 MG TAB PO (09:24)
[2018-08-27] MEDS: FERROUS SULFATE (EC) 325 MG TAB PO (09:24)
[2018-08-27] MEDS: AMLODIPINE 10 MG TAB PO (09:24)
[2018-08-27] MEDS: CHOLECALCIFEROL 1,000 UNIT TAB PO (09:24)
[2018-08-27] MEDS: L ACIDOPHIL/B LACTIS/B LONGUM CAPSULE PO ×2 (09:24→20:16)
[2018-08-27] MEDS: MUPIROCIN 2% 22 GM OINT TOP ×2 (09:25→20:16)
[2018-08-27] MEDS: BALSAM PERU/CASTOR OIL 60 GM TUBE TOP (09:25)
[2018-08-27] MEDS: ENOXAPARIN 30 MG/0.3 ML SYG SC (09:45)
[2018-08-27 12:34] LABS: AADO2 Arterial 32.3 mmHg (7.0-24.0); Allen Test ACCEPTAB; Arterial Base Excess -0.7 mmol/L (-3.0-3); Arterial Blood Gas Oxygen Sat 94.6 mmHG (95.0-100.0); Arterial COHb 0.2 % (0.0-3.0); Arterial Fraction of Oxyhgb 94.1 % (93.0-99.0); Arterial HCO3 23.6 mmol/L (22.0-26.0); Arterial MetHb 0.3 % (0.0-1.5); Arterial Total Hemglobin 13.3 g/dl (12.0-18.0); Arterial pCO2 37.9 mmhg (35-45); MODE ROOM AIR; Site Right Radial
[2018-08-27] MEDS: QUETIAPINE 25 MG TAB PO (20:16)
[2018-08-27] MEDS: ATORVASTATIN 80 MG TAB PO (20:16)
[2018-08-27] MEDS: VALPROIC ACID 250 MG CAP PO (20:16)
[2018-08-28] MEDS: CEFTRIAXONE 1 GM/50 ML (PMX) 50 ML IVPB (01:23)
[2018-08-28] MEDS: SOD CHLORIDE 0.45% 1,000 ML IV ×2 (04:39→08:00)
[2018-08-28 05:35] LABS: ADD MAN DIFF? NO
[2018-08-28 05:37] LABS: BASOPHIL # 0.1 10^3/ul (0.0-0.1); BASOPHILS % 0.4 % (0.0-2.0); EOSINOPHILS # 0.2 10^3/ul (0.0-0.5); EOSINOPHILS % 1.1 % (0.0-7.0); HEMATOCRIT 43.7 % (42.0-52.0); HEMOGLOBIN 13.8 g/dl (14.0-18.0); LYMPHOCYTES % 14.7 % (15.0-51.0); MEAN CORPUSCULAR HEMOGLOBIN 29.7 pg (29.0-33.0); MEAN CORPUSCULAR HGB CONC 31.6 g/dl (32.0-37.0); MEAN PLATELET VOLUME 9.3 fl (7.4-10.4); MONOCYTE # 0.8 10^3/ul (0.3-0.9); MONOCYTES % 6.2 % (0.0-11.0); NEUTROPHIL # 10.2 10^3/ul (1.6-7.5); NEUTROPHILS % 76.1 % (39.0-77.0); PLATELET COUNT 401 10^3/UL (140-415); RED BLOOD COUNT 4.65 10^6/ul (4.70-6.10); RED CELL DISTRIBUTION WIDTH 13.5 % (11.5-14.5)
[2018-08-28 05:37] LABS: WHITE BLOOD COUNT 13.4 10^3/ul (4.8-10.8)
[2018-08-28 06:40] LABS: ANION GAP 9 (5-13); BLOOD UREA NITROGEN 27 mg/dl (7-20); CALCIUM 9.8 mg/dl (8.4-10.2); CARBON DIOXIDE 25 mmol/L (21-31); CHLORIDE 108 mmol/L (97-110); CREATININE 1.27 mg/dl (0.61-1.24); GLUCOSE 75 mg/dl (70-220); POTASSIUM 4.4 mmol/L (3.5-5.1); SODIUM 142 mmol/L (135-144)
[2018-08-28] MEDS: LEVALBUTEROL (NEB) 0.63 MG/3 ML AMP HHN ×2 (07:39→15:16)
[2018-08-28] MEDS: DOXYCYCLINE 100 MG in SOD CHLORIDE 0.9% 250 ML IVPB ×2 (09:19→21:23)
[2018-08-28] MEDS: CLOPIDOGREL 75 MG TAB PO (09:20)
[2018-08-28] MEDS: L ACIDOPHIL/B LACTIS/B LONGUM CAPSULE PO ×2 (09:20→20:32)
[2018-08-28] MEDS: COLCHICINE 0.6 MG TAB PO (09:20)
[2018-08-28] MEDS: FERROUS SULFATE (EC) 325 MG TAB PO (09:20)
[2018-08-28] MEDS: CHOLECALCIFEROL 1,000 UNIT TAB PO (09:20)
[2018-08-28] MEDS: predniSONE 20 MG TAB PO (09:20)
[2018-08-28] MEDS: MULTIVITAMINS THERAPEUTIC TAB PO (09:20)
[2018-08-28] MEDS: FAMOTIDINE 20 MG TAB PO ×2 (09:20→20:32)
[2018-08-28] MEDS: BALSAM PERU/CASTOR OIL 60 GM TUBE TOP (09:21)
[2018-08-28] MEDS: MUPIROCIN 2% 22 GM OINT TOP ×2 (09:21→20:34)
[2018-08-28] MEDS: AMLODIPINE 10 MG TAB PO (09:21)
[2018-08-28] MEDS: ENOXAPARIN 30 MG/0.3 ML SYG SC (09:34)
[2018-08-28] MEDS: ATORVASTATIN 80 MG TAB PO (20:32)
[2018-08-28] MEDS: CEFEPIME 1GM/50 ML (PMX) 50 ML IVPB (20:32)
[2018-08-28] MEDS: QUETIAPINE 25 MG TAB PO (20:32)
[2018-08-28] MEDS: VALPROIC ACID 250 MG CAP PO (21:23)
[2018-08-29] MEDS: LEVALBUTEROL (NEB) 0.63 MG/3 ML AMP HHN ×3 (01:01→15:56)
[2018-08-29] MEDS: SOD CHLORIDE 0.45% 1,000 ML IV (04:00)
[2018-08-29] MEDS: CEFEPIME 1GM/50 ML (PMX) 50 ML IVPB ×2 (09:06→21:53)
[2018-08-29] MEDS: AMLODIPINE 10 MG TAB PO (09:07)
[2018-08-29] MEDS: FERROUS SULFATE (EC) 325 MG TAB PO (09:07)
[2018-08-29] MEDS: FAMOTIDINE 20 MG TAB PO ×2 (09:07→20:05)
[2018-08-29] MEDS: L ACIDOPHIL/B LACTIS/B LONGUM CAPSULE PO ×2 (09:07→20:05)
[2018-08-29] MEDS: CLOPIDOGREL 75 MG TAB PO (09:07)
[2018-08-29] MEDS: COLCHICINE 0.6 MG TAB PO (09:07)
[2018-08-29] MEDS: CHOLECALCIFEROL 1,000 UNIT TAB PO (09:07)
[2018-08-29] MEDS: predniSONE 20 MG TAB PO (09:07)
[2018-08-29] MEDS: MULTIVITAMINS THERAPEUTIC TAB PO (09:07)
[2018-08-29] MEDS: BALSAM PERU/CASTOR OIL 60 GM TUBE TOP (09:07)
[2018-08-29] MEDS: MUPIROCIN 2% 22 GM OINT TOP ×2 (09:08→20:06)
[2018-08-29] MEDS: ENOXAPARIN 30 MG/0.3 ML SYG SC (09:57)
[2018-08-29] MEDS: DOXYCYCLINE 100 MG in SOD CHLORIDE 0.9% 250 ML IVPB ×2 (10:44→20:05)
[2018-08-29] MEDS: QUETIAPINE 25 MG TAB PO (20:05)
[2018-08-29] MEDS: VALPROIC ACID 250 MG CAP PO (20:06)
[2018-08-29] MEDS: ATORVASTATIN 80 MG TAB PO (20:06)
[2018-08-30] MEDS: LEVALBUTEROL (NEB) 0.63 MG/3 ML AMP HHN ×3 (01:42→16:25)
[2018-08-30 05:40] LABS: ADD MAN DIFF? NO
[2018-08-30 05:56] LABS: WHITE BLOOD COUNT 13.9 10^3/ul (4.8-10.8)
[2018-08-30 05:56] LABS: BASOPHILS % 0.3 % (0.0-2.0); EOSINOPHILS # 0.1 10^3/ul (0.0-0.5); EOSINOPHILS % 0.6 % (0.0-7.0); HEMATOCRIT 40.3 % (42.0-52.0); HEMOGLOBIN 12.8 g/dl (14.0-18.0); LYMPHOCYTES # 2.3 10^3/ul (0.8-2.9); LYMPHOCYTES % 16.6 % (15.0-51.0); MEAN CORPUSCULAR HEMOGLOBIN 29.6 pg (29.0-33.0); MEAN CORPUSCULAR HGB CONC 31.8 g/dl (32.0-37.0); MEAN CORPUSCULAR VOLUME 93.3 fl (82.0-101.0); MEAN PLATELET VOLUME 9.8 fl (7.4-10.4); MONOCYTES % 6.9 % (0.0-11.0); NEUTROPHIL # 10.3 10^3/ul (1.6-7.5); NEUTROPHILS % 74.4 % (39.0-77.0); PLATELET COUNT 385 10^3/UL (140-415); RED BLOOD COUNT 4.32 10^6/ul (4.70-6.10); RED CELL DISTRIBUTION WIDTH 13.8 % (11.5-14.5)
[2018-08-30 06:20] LABS: ANION GAP 8 (5-13); BLOOD UREA NITROGEN 24 mg/dl (7-20); CALCIUM 9.2 mg/dl (8.4-10.2); CARBON DIOXIDE 23 mmol/L (21-31); CHLORIDE 111 mmol/L (97-110); CREATININE 1.07 mg/dl (0.61-1.24); GLUCOSE 64 mg/dl (70-220); POTASSIUM 4.3 mmol/L (3.5-5.1); SODIUM 142 mmol/L (135-144)
[2018-08-30] MEDS: DEXTROSE 5%-0.45% NACL 1,000 ML IV (06:51)
[2018-08-30] MEDS: CLOPIDOGREL 75 MG TAB PO (08:12)
[2018-08-30] MEDS: CEFEPIME 1GM/50 ML (PMX) 50 ML IVPB ×2 (08:13→19:57)
[2018-08-30] MEDS: AMLODIPINE 10 MG TAB PO (08:13)
[2018-08-30] MEDS: predniSONE 20 MG TAB PO (08:13)
[2018-08-30] MEDS: CHOLECALCIFEROL 1,000 UNIT TAB PO (08:13)
[2018-08-30] MEDS: MULTIVITAMINS THERAPEUTIC TAB PO (08:13)
[2018-08-30] MEDS: MUPIROCIN 2% 22 GM OINT TOP ×2 (08:13→19:57)
[2018-08-30] MEDS: L ACIDOPHIL/B LACTIS/B LONGUM CAPSULE PO ×2 (08:13→19:57)
[2018-08-30] MEDS: FERROUS SULFATE (EC) 325 MG TAB PO (08:13)
[2018-08-30] MEDS: FAMOTIDINE 20 MG TAB PO ×2 (08:13→19:57)
[2018-08-30] MEDS: COLCHICINE 0.6 MG TAB PO (08:13)
[2018-08-30] MEDS: BALSAM PERU/CASTOR OIL 60 GM TUBE TOP (08:14)
[2018-08-30] MEDS: ENOXAPARIN 30 MG/0.3 ML SYG SC (08:32)
[2018-08-30] MEDS: DOXYCYCLINE 100 MG in SOD CHLORIDE 0.9% 250 ML IVPB ×2 (09:12→21:01)
[2018-08-30] MEDS: SOD CHLORIDE 0.45% 1,000 ML IV ×2 (19:34)
[2018-08-30] MEDS: QUETIAPINE 25 MG TAB PO (19:57)
[2018-08-30] MEDS: VALPROIC ACID 250 MG CAP PO (19:57)
[2018-08-30] MEDS: ATORVASTATIN 80 MG TAB PO (19:57)
[2018-08-31] MEDS: LEVALBUTEROL (NEB) 0.63 MG/3 ML AMP HHN ×4 (00:19→23:29)
[2018-08-31] MEDS: DEXTROSE 5%-0.45% NACL 1,000 ML IV ×2 (03:00→05:53)
[2018-08-31 05:57] LABS: ADD MAN DIFF? NO
[2018-08-31 05:58] LABS: WHITE BLOOD COUNT 11.5 10^3/ul (4.8-10.8)
[2018-08-31 05:58] LABS: BASOPHIL # 0.1 10^3/ul (0.0-0.1); BASOPHILS % 0.5 % (0.0-2.0); EOSINOPHILS # 0.2 10^3/ul (0.0-0.5); HEMATOCRIT 42.9 % (42.0-52.0); HEMOGLOBIN 13.7 g/dl (14.0-18.0); LYMPHOCYTES # 1.7 10^3/ul (0.8-2.9); LYMPHOCYTES % 14.8 % (15.0-51.0); MEAN CORPUSCULAR HEMOGLOBIN 29.8 pg (29.0-33.0); MEAN CORPUSCULAR HGB CONC 31.9 g/dl (32.0-37.0); MEAN CORPUSCULAR VOLUME 93.5 fl (82.0-101.0); MEAN PLATELET VOLUME 9.7 fl (7.4-10.4); MONOCYTE # 0.6 10^3/ul (0.3-0.9); MONOCYTES % 5.3 % (0.0-11.0); NEUTROPHIL # 8.8 10^3/ul (1.6-7.5); NEUTROPHILS % 76.4 % (39.0-77.0); PLATELET COUNT 340 10^3/UL (140-415); RED BLOOD COUNT 4.59 10^6/ul (4.70-6.10); RED CELL DISTRIBUTION WIDTH 14.5 % (11.5-14.5)
[2018-08-31 06:44] LABS: ANION GAP 8 (5-13); BLOOD UREA NITROGEN 24 mg/dl (7-20); CALCIUM 9.1 mg/dl (8.4-10.2); CARBON DIOXIDE 23 mmol/L (21-31); CHLORIDE 111 mmol/L (97-110); CREATININE 1.19 mg/dl (0.61-1.24); GLUCOSE 70 mg/dl (70-220); POTASSIUM 4.1 mmol/L (3.5-5.1); SODIUM 142 mmol/L (135-144)
[2018-08-31] MEDS: MUPIROCIN 2% 22 GM OINT TOP ×2 (09:00→20:27)
[2018-08-31] MEDS: BALSAM PERU/CASTOR OIL 60 GM TUBE TOP (09:00)
[2018-08-31] MEDS: L ACIDOPHIL/B LACTIS/B LONGUM CAPSULE PO ×2 (09:44→20:26)
[2018-08-31] MEDS: MULTIVITAMINS THERAPEUTIC TAB PO (09:44)
[2018-08-31] MEDS: CEFEPIME 1GM/50 ML (PMX) 50 ML IVPB ×2 (09:44→20:25)
[2018-08-31] MEDS: predniSONE 20 MG TAB PO (09:44)
[2018-08-31] MEDS: DOXYCYCLINE 100 MG in SOD CHLORIDE 0.9% 250 ML IVPB ×2 (09:44→21:59)
[2018-08-31] MEDS: CLOPIDOGREL 75 MG TAB PO (09:44)
[2018-08-31] MEDS: FERROUS SULFATE (EC) 325 MG TAB PO (09:44)
[2018-08-31] MEDS: FAMOTIDINE 20 MG TAB PO ×2 (09:44→20:26)
[2018-08-31] MEDS: COLCHICINE 0.6 MG TAB PO (09:45)
[2018-08-31] MEDS: AMLODIPINE 10 MG TAB PO (09:45)
[2018-08-31] MEDS: CHOLECALCIFEROL 1,000 UNIT TAB PO (09:45)
[2018-08-31] MEDS: ENOXAPARIN 30 MG/0.3 ML SYG SC (10:24)
[2018-08-31] MEDS: ATORVASTATIN 80 MG TAB PO (20:26)
[2018-08-31] MEDS: QUETIAPINE 25 MG TAB PO (20:26)
[2018-08-31] MEDS: VALPROIC ACID 250 MG CAP PO (20:26)
[2018-09-01 05:38] LABS: ADD MAN DIFF? NO
[2018-09-01 05:45] LABS: BASOPHIL # 0.1 10^3/ul (0.0-0.1); BASOPHILS % 0.4 % (0.0-2.0); EOSINOPHILS # 0.2 10^3/ul (0.0-0.5); EOSINOPHILS % 1.8 % (0.0-7.0); HEMATOCRIT 39.6 % (42.0-52.0); HEMOGLOBIN 12.8 g/dl (14.0-18.0); LYMPHOCYTES # 2.1 10^3/ul (0.8-2.9); LYMPHOCYTES % 18.2 % (15.0-51.0); MEAN CORPUSCULAR HEMOGLOBIN 30.3 pg (29.0-33.0); MEAN CORPUSCULAR HGB CONC 32.3 g/dl (32.0-37.0); MEAN CORPUSCULAR VOLUME 93.8 fl (82.0-101.0); MEAN PLATELET VOLUME 10.8 fl (7.4-10.4); MONOCYTE # 0.8 10^3/ul (0.3-0.9); MONOCYTES % 7.1 % (0.0-11.0); NEUTROPHIL # 8.1 10^3/ul (1.6-7.5); NEUTROPHILS % 71.4 % (39.0-77.0); PLATELET COUNT 296 10^3/UL (140-415); POSITIVE DIFF @See below; RED BLOOD COUNT 4.22 10^6/ul (4.70-6.10); RED CELL DISTRIBUTION WIDTH 14.3 % (11.5-14.5)
[2018-09-01 05:45] LABS: WHITE BLOOD COUNT 11.4 10^3/ul (4.8-10.8)
[2018-09-01 06:13] LABS: ANION GAP 4 (5-13); BLOOD UREA NITROGEN 16 mg/dl (7-20); CALCIUM 9.1 mg/dl (8.4-10.2); CARBON DIOXIDE 23 mmol/L (21-31); CHLORIDE 114 mmol/L (97-110); CREATININE 1.01 mg/dl (0.61-1.24); GLUCOSE 75 mg/dl (70-220); POTASSIUM 4.3 mmol/L (3.5-5.1); SODIUM 141 mmol/L (135-144)
[2018-09-01] MEDS: CEFEPIME 1GM/50 ML (PMX) 50 ML IVPB (07:41)
[2018-09-01] MEDS: predniSONE 20 MG TAB PO (07:42)
[2018-09-01] MEDS: CLOPIDOGREL 75 MG TAB PO (07:42)
[2018-09-01] MEDS: CHOLECALCIFEROL 1,000 UNIT TAB PO (07:42)
[2018-09-01] MEDS: FERROUS SULFATE (EC) 325 MG TAB PO (07:42)
[2018-09-01] MEDS: FAMOTIDINE 20 MG TAB PO (07:42)
[2018-09-01] MEDS: L ACIDOPHIL/B LACTIS/B LONGUM CAPSULE PO (07:42)
[2018-09-01] MEDS: MULTIVITAMINS THERAPEUTIC TAB PO (07:42)
[2018-09-01] MEDS: COLCHICINE 0.6 MG TAB PO (07:42)
[2018-09-01] MEDS: AMLODIPINE 10 MG TAB PO (07:42)
[2018-09-01] MEDS: BALSAM PERU/CASTOR OIL 60 GM TUBE TOP (07:43)
[2018-09-01] MEDS: MUPIROCIN 2% 22 GM OINT TOP (07:43)
[2018-09-01] MEDS: ENOXAPARIN 30 MG/0.3 ML SYG SC (08:05)
[2018-09-01] MEDS: LEVALBUTEROL (NEB) 0.63 MG/3 ML AMP HHN ×2 (08:13→16:41)
[2018-09-01] MEDS: DOXYCYCLINE 100 MG in SOD CHLORIDE 0.9% 250 ML IVPB (09:00)
== END 2018-09-01 17:42 | DRG 193 ==
LOC: E/R 15:44 → 6WM 08-26 20:33
DX: J18.9 Pneumonia, unspecified organism (principal); G93.41 Metabolic encephalopathy; N17.0 Acute kidney failure with tubular necrosis; I50.30 Unspecified diastolic (congestive) heart failure; E87.0 Hyperosmolality and hypernatremia; I69.920 Aphasia following unspecified cerebrovascular disease; M43.22 Fusion of spine, cervical region; E78.5 Hyperlipidemia, unspecified; M10.9 Gout, unspecified; M17.10 Unilateral primary osteoarthritis, unspecified knee; Z93.0 Tracheostomy status; Z93.1 Gastrostomy status; F29 Unspecified psychosis not due to a substance or known physiological condition; E87.5 Hyperkalemia; F31.9 Bipolar disorder, unspecified; R00.1 Bradycardia, unspecified; I11.0 Hypertensive heart disease with heart failure; E86.0 Dehydration; Z87.81 Personal history of (healed) traumatic fracture; E83.52 Hypercalcemia
CPT/HCPCS: 36415; 36600; 71045; 80048; 80053; 81003; 82803; 83605; 83735; 84132; 84484; 84560; 85025; 85610; 85730; 87040; 87081; 93005; 93306; 94640; 94660; 94664; 99285-25